=== PATIENT | male | born 1965 | race Caucasian/White ===

== ENCOUNTER → 2018-07-25 | Outpatient (CLI) | payer OTHER ==
--- NOTE | ~2018-07-25 | EEG ---
[address] [address] EEG STUDY REPORT Name: BETANCOURT,JOSIE Daniel Room: [facility]#: [id number] Admission: 07/25/18 Attend Phys: Pawan Davis Discharge: Date of : 65 Report #: [id number] THIS REPORT FOR: //name// CC: Mykel Bella DATE OF SERVICE: 07/25/2018 This patient is being evaluated for seizure. EEG was done by placing the electrodes by standard 10-20 system of electrode placement. Both referential and sequential montages were used for recording. Background activity in this patient's EEG is about 10 Hz and 30 microvolt. It is a symmetrical activity. The patient went to sleep that is associated with bilaterally symmetrical vertex sharp waves as well as sleep spindles. Photic stimulation was unremarkable. Throughout the record, no active epileptiform activity was noticed. IMPRESSION: This patient's electroencephalogram is within normal limits. No active epileptiform activity was noticed. It might be mentioned that EEG can be normal in a patient with seizure disorder. Thank you very much for this referral. By: 10 16Live Arias MD /melony
== END ==
LOC: M.CRD 12:47
DX: R56.9 Unspecified convulsions (principal); E87.1 Hypo-osmolality and hyponatremia